=== PATIENT | female | born 1955 | race Caucasian/White ===

== ENCOUNTER 2020-12-27 10:24 | Inpatient (IN) | payer OTHER, MEDICARE ==
[~2020-12-27] VITALS: Ht 162.6 cm; Wt 152.0 kg
[2020-12-27 10:24] VITALS: BP 125/65
[~2020-12-27 10:24] MED LIST: ACETAMINOPHEN325 MG PO; ADVAIR HFA 230M12 GM INH; AMLODIPINE BESY10 MG PO; AUGMENTIN 875875 M1 PO; COLACE100 MG PO; COUMADIN 5 MG TA5 M1 PO; CRANBERRY200 MG PO; DARVOCET-N 1001 EAC1 PO; DIGESTIVE ENZY1 EACH PO; ENALAPRIL MALEA10 M1 PO; FAMOTIDINE20 MG PO; FLEXERIL; GLUCOPHAGE XR500 MG PO; HYDROCODONE-AP1 EAC6 PO; K-DUR 20 MEQ T20 MEQ PO; KEPPRA 500 MG500 M1 PO; LEVAQUIN 500 M500 M2 PO; LEVOTHROID200 MCG PO; LEVOTHYROXINE0.2 M1 PO; LISINOPRIL20 MG PO; LOPRESSOR25 PO; LOPRESSOR50 PO; LORTAB 5 MG/5001 TAB PO; LOVENOX SC; MAG DELAY64 MG PO; MEGESTROL ACETA40 MG PO; MIRALAX17 GM PO; NYSTATIN1 EAC9 TOP; PROBIOTIC1 EAC1 PO; PROBIOTIC1 EAC2 PO; TRIAMCINOLONE TOP; UNICOMPLEX M TA1 TA1 PO; VENLAFAXIN75 MG/1 T2 PO; VENLAFAXINE HCL75 M2 PO; VITAMIN D31000 UNI2 PO; XARELTO10 M1 PO; ZYRTEC10 M4 PO; [UNRECOGNIZED DRUG - OTHER]
[2020-12-27 10:47] LABS: ABSOLUTE NEUTROPHILS 4.8 thou/uL (1.4-8.2); BASOPHILS 0.8 % (0.0-2.0); EOSINOPHILS 1.1 % (0.0-3.0); HEMATOCRIT 49.8 % (37.0-47.0); HEMOGLOBIN 16.4 gm/dL (12.0-15.0); LYMPHOCYTES 18.7 % (24.0-44.0); MCH 27.9 pg (26.0-34.0); MCV 84.8 fL (80.0-100.0); MONOCYTES 13.7 % (1.0-8.0); PLATELET COUNT 207 thou/uL (150-400); POLYS 65.7 % (36.0-66.0); RBC 5.88 mil/uL (4.20-5.00); RDW 16.6 % (10.5-14.5); WBC 7.4 thou/uL (4.0-11.0)
[2020-12-27 11:05] LABS: CALCIUM 9.2 mg/dL (8.5-10.1); CREATININE 1.3 mg/dL (0.6-1.0); POTASSIUM 4.2 mmol/L (3.5-5.1)
[2020-12-27 11:11] LABS: ALBUMIN 3.1 g/dL (3.4-5.0); TOTAL BILIRUBIN 0.3 mg/dL (0.2-1.0); TOTAL PROTEIN 7.6 g/dL (6.4-8.2)
[2020-12-27] MEDS ORDERED: XARELTO20 MG PO (12:02)
[2020-12-27] MEDS ORDERED: LEVO-T75 MCG PO (12:03)
[2020-12-27] MEDS ORDERED: METOPROLOL SUCC50 MG PO (12:04)
[2020-12-27] MEDS ORDERED: LOPERAMIDE 2 MG2 M1 PO (12:06)
[2020-12-27 12:18] VITALS: BP 129/65
[2020-12-27 12:36] VITALS: BP 141/76
[2020-12-27 13:03] VITALS: BP 133/61
--- NOTE | 2020-12-27 13:55 | NUR ---
ARRIVED TO VIA BED. A/O X 4. ROOM AIR. BEDBOUND AND USES CANE AND WHEELCHAIR AT HOME. LEFT SIDE OF FACE FROM CHIN TO LEFT EAR REG, WARM, HAS MULTIPLE BLISTER AREAS, PAINFUL TO PATIENT UPON TOUCH AND THAT AREA IS NUMB. HAVING TROUBLE HEARING IN LEFT EAR. SMALL RED BUMPS INNER THIGHS. INCONT OF B/B. MISSING MOST TEETH. HAVING PAIN LEFT FOREARM WELL. SHES NEEDING TO EAT SOFT THINGS DUW TO HER MISSING TEETH. TOLERATING VANCOMYCIN IV ABT WELL, NO ADVERSE EFFECTS NOTED. FACIAL PAIN GOING ON SINCE YESTERDAY MORNING 0530. VERY TALKITIVE. RIGHT HAND IV CAME OUT UPON ASSESSMENT. LEFT FOREARM IV PATENT.
[2020-12-27 16:01] VITALS: BP 140/74
[2020-12-27 20:53] VITALS: BP 117/65
--- NOTE | 2020-12-28 06:45 | NUR ---
RECEIVED CARE OF THIS PATIENT AT 1900. PATIENT ALERT AND ORIENTED X4. FACE HAS BLISTERS ON THE L SIDE. REMAINS ON BEDREST. ACCUCHECK WAS 139, NO COVERAGE.C/O PAIN, MED NOT GIVEN. WAS ASLEEP WHEN WENT IN TO SEE ABOUT PAIN. SLEPT MOST OF NIGHT.
--- NOTE | 2020-12-28 07:36 | EKG ---
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 : 1955 Requested By: Zeus Talbot Order Number: [id number] MD: Reji Robert Measurements Intervals [place] Rate: 70 P: -8 IA: 170 QRS: -63 QRSD: 109 T: 36 QT: 410 QTc: 443 Interpretive Statements Sinus rhythm Ventricular premature complex Left anterior fascicular block Abnormal R-wave progression, late transition Probable left ventricular hypertrophy Compared to ECG 05/10/2010 02:06:51 Ventricular premature complex(es) now present Left anterior fascicular block now present Sinus tachycardia no longer present Left-axis deviation no longer present Myocardial infarct finding no longer present Electronically Signed On 12-28-2020 7:35:56 CDT by Reji Robert [email or web address] <ELECTRONICALLY SIGNED> By: Reji Robert MD, FACC 12/28/20 0735 1026 1026 Reji Robert MD, FACLupe /EPI
[2020-12-28 08:32] VITALS: BP 127/79
[2020-12-28 17:29] VITALS: BP 121/71
[2020-12-28 21:00] VITALS: BP 143/54
--- NOTE | 2020-12-29 03:49 | NUR ---
PT IS A/O X4 AND IS ON BED REST. ROOM AIR. VSS. AFEBRILE. MEDICATIONS GIVEN PER MAR. PUREWICK REPLACED AND WORKING APPROPRIATELY. FALL PRECAUTIONS IN PLACE, CALL LIGHT IS WITHIN REACH. WILL CONTINUE TO MONITOR.
[2020-12-29 05:57] VITALS: BP 156/77
[2020-12-29 08:20] VITALS: BP 145/70
--- NOTE | 2020-12-29 16:17 | NUR ---
PT ADMITTED RELATED TO [facility]. CM REVIEWED CHART AND SPOKE WITH CARE TEAM. CM MET WITH PT AT BEDSIDE THIS DAY. PT APPEARED TO BE A&O X4. CM ROLE INTRODUCED. PT INDICATED SHE RESIDES IN [facility] ALONE WITH NO STEPS TO ENTER AND NONE INSIDE. PT INDICATED SHE HAS A CANE, FWW, MANUAL WC AND POWER WC FOR USE AT HOME. PT INDICATED SHE HAD BEEN INDEPDENENT WITH [employer] NE[employer]. 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 PT INDICATED NO HH HX. PT INDICATED HER PCP IS DR. QUILES IN [place]. PT INDICATED SHE PLANS TO BE ABLE TO RETURN HOME ONCE MEDICALLY STABLE. CM FOLLOWING REGARDING DC PLANNING.
[2020-12-29 16:24] VITALS: BP 128/53
--- NOTE | 2020-12-29 18:43 | NUR ---
PT REFUSED TO GET OUT OF BED AND USE BATHROOM. PT IS INCONTINTENT OF B+B. PT WORKED WITH PT/OT IN BED. PT VS STABLE. PT RECEIVED MEDICATIONS ORDERED. PT IS ABLE TO MAKE NEEDS KNOWN
[2020-12-29 19:52] VITALS: BP 130/63
[2020-12-30 05:13] VITALS: BP 169/57
--- NOTE | 2020-12-30 05:30 | NUR ---
RECEOVED CARE OF THIS PATIENT AT 1900. PATIENT ALERT AND ORIENTED X4. BLISTERS ON FACE IN VARIOUS STAGES OF HEALING. REMAINS IN ISO FOR HERPES. ACCUCHECK WAS 112, REFUSED INSULIN. REMAINS ON BEDREST. C/O PAIN, MED GIVEN. SLEPT MOST OF NIGHT.
[2020-12-30 08:31] VITALS: BP 169/57
[2020-12-30] MEDS ORDERED: CLINDAMYCIN HC300 MG PO (09:20)
[2020-12-30] MEDS ORDERED: VALTREX 500 MG500 MG PO (09:21)
[2020-12-30] MEDS ORDERED: NEO-POLYMYXIN-H10 ML OTIC (09:22)
--- NOTE | 2020-12-30 13:07 | NUR ---
Pt received discharge orders to home. pt A & Ox4. pt vs stable. pt discharge instructions reviewed with pt and pt verbalized understanding and signed instructions. Pt awaiting ride home.
== END 2020-12-30 14:16 | disposition home or self-care (01) | DRG 74 ==
LOC: ER 10:24 → 4S 12:02 → EROBS 12:02 → 4S 12:55
PROVIDERS: Emergency Medicine; ADMIT Hospitalist; ATTEND Hospitalist
DX: B02.21 Postherpetic geniculate ganglionitis (principal); L03.211 Cellulitis of face; Z68.43 Body mass index [BMI] 50.0-59.9, adult; L02.01 Cutaneous abscess of face; E44.0 Moderate protein-calorie malnutrition; B00.1 Herpesviral vesicular dermatitis; H66.002 Acute suppurative otitis media without spontaneous rupture of ear drum, left ear; E66.9 Obesity, unspecified; Z20.822 Contact with and (suspected) exposure to COVID-19; I10 Essential (primary) hypertension; K02.9 Dental caries, unspecified; Z88.2 Allergy status to sulfonamides
CPT/HCPCS: 10195